=== PATIENT | male | born 1995 | race African-American/Black ===

== ENCOUNTER 2022-01-07 13:36 | Emergency (ER) | payer SELFPAY ==
[2022-01-07 13:44] VITALS: BP 140/64; PULSE 79; RESP 16; TEMP 98.1
[2022-01-07] MEDS ORDERED: KETOROLAC 15 MG/ML 1 ML VIAL IM STA (15:06)
--- NOTE | 2022-01-07 15:06 | ED ---
ENT HPI - General Chief complaint: Dental/Oral Stated complaint: Tooth Pain Time Seen by Provider: 01/07/22 14:36 Source: patient Mode of arrival: ambulatory Limitations: no limitations - History of Present Illness Initial comments: Patient is a 26-year-old male presenting to ER for evaluation of dental pain. He believes he has a tooth abscess. He is aware of a broken tooth on the right lower jaw, there has been increased pain and swelling for the last 3 days. The R lower jaw is tender to touch. He has not tried supportive treatment at home. He does not follow with a dentist. He denies fever, chills, nausea, vomiting, headache, vision changes, trismus, lymphadenopathy, dysphasia. - Related Data Previous Rx's Medication Instructions Recorded Penicillin V Potassium [Pen Vee K] 500 mg PO QID 7 Days #28 tablet 01/07/22 Allergies Allergy/AdvReac Type Severity Reaction Status Date / Time No Known Allergies Allergy Verified 01/07/22 13:40 Review of Systems ROS Statement: Those systems with pertinent positive or pertinent negative responses have been documented in the HPI. ROS Other: All systems not noted in ROS Statement are negative. Past Medical History Past Medical History: No Reported History History of Any Multi-Drug Resistant Organisms: None Reported Past Surgical History: No Surgical Hx Reported Past Psychological History: No Psychological Hx Reported Smoking Status: Vaper Past Alcohol Use History: None Reported Past Drug Use History: None Reported General Exam Limitations: no limitations General appearance: alert, in no apparent distress Head exam: Present: atraumatic, normocephalic, normal inspection Eye exam: Present: normal appearance, PERRL, EOMI. Absent: scleral icterus, conjunctival injection, periorbital swelling ENT exam: Present: mucous membranes moist Expanded Mouth exam: Present: tongue normal, other (Dental abscess observed). Absent: drooling, trismus, muffled voice Teeth exam: Present: dental caries, fractured tooth # (31), gingival enlargement Throat exam: normal inspection, other (No midline shift) Neck exam: Present: normal inspection. Absent: tenderness Extremities exam: Present: normal inspection, full ROM Neurological exam: Present: alert, oriented X3, CN II-XII intact Psychiatric exam: Present: normal affect, normal mood Skin exam: Present: warm, dry, intact, normal color. Absent: rash Course Vital Signs 01/07/22 13:38 Temperature 98.1 F Pulse Rate 79 Respiratory 16 Rate Blood Pressure 140/64 O2 Sat by Pulse 99 Oximetry Medical Decision Making - Medical Decision Making Patient is a 26-year-old male presenting for evaluation of dental pain. He believes he has a dental infection due to a known broken tooth on the left lower side. Pain is throbbing and has occurred for about 3 days now. He has not tried supportive treatment at home. On exam there is notable swelling and tenderness of the right lower jaw. Formation and abscess observed on examination of the mouth. Treated with Penicillin VK 500 mg 4 times a day for [address] Junior. Follow-up with dentist in 1-2 days. Advised pain control with alternating Motrin and Tylenol. Do not exceed more than 3500 mg of acetaminophen or 3200 mg of ibuprofen in 24 hours. Actually ER if symptoms worsen or new alarming symptoms develop such as fever, chills, dysphasia, shortness of breath. Answered all questions. Patient conveyed verbal understanding and agreed to the plan. Dr. Junior was the attending. Disposition Clinical Impression: Dental abscess Disposition: HOME SELF-CARE Condition: Good Instructions (If sedation given, give patient instructions): Dental Abscess (ED), Toothache (ED) Additional Instructions: Take medication as prescribed. Follow-up with dentist in 1-2 days. Report back to ER with worsening symptoms or new symptoms such as increased swelling, increased pain, fever, chills Prescriptions: Penicillin V Potassium [Pen Vee K] 500 mg PO QID 7 Days #28 tablet Is patient prescribed a controlled substance at d/c from ED?: No Referrals: None,Stated [Primary Care Provider] - 1-2 days Time of Disposition: 15:11
== END 2022-01-07 15:25 | disposition home or self-care (01) ==
LOC: EC 13:36
DX: K04.7 Periapical abscess without sinus (principal); F17.290 Nicotine dependence, other tobacco product, uncomplicated
CPT/HCPCS: 99282; 96372; J1885